=== PATIENT | male | born 1990 | race Caucasian/White ===

== ENCOUNTER 2025-01-13 10:03 | Emergency (ER) | payer SELFPAY ==
[2025-01-13 10:16] VITALS: BP 119/57; PULSE 74; RESP 16; TEMP 36.6; O2SAT 97; BMI 22.2
--- NOTE | 2025-01-13 10:22 | ED.EYEPROB ---
HPI - Eye Problem General Chief complaint: Eye Problems Stated complaint: eyes burning Time Seen by Provider: 01/13/25 11:13 Source: patient Mode of arrival: ambulatory Limitations: no limitations History of Present Illness ED Provider: Dr. Miller HPI Narrative: This is a 34-year-old male presented hospital today for evaluation of bilateral eye burning sensation. This occurred yesterday shortly after he was working on his car. Patient stated that he was placing a plastic piece. Denies any chemical exposure to his eyes. Patient's stated that it feels like a burning sensation in the medial canthus of his left eye. Related Data Previous Rx's ?Medication ?Instructions ?Recorded erythromycin 5 mg/gram (0.5 %) eye 0.5 inch ophthalmic (eye) BID #3.5 01/13/25 ointment grams Allergies Allergy/AdvReac Type Severity Reaction Status Date / Time No Known Allergies Allergy Verified 01/13/25 10:17 Review of Systems Review of Systems: Pertinent review of systems as mentioned in HPI. All other system otherwise negative. [facility] Past Medical History [facility] Narrative: Medical history as mentioned in [facility] Social History Social History Advance Directives: No Advance Directives Information Provided: Yes Physical Exam Exam: Exam: General: Pleasant, no distress, interacting appropriately Head: Normacephalic, atraumatic ENT: oral mucosa moist, neck supple, 20/20 left eye acuity, 20/30 right eye acuity, pupils PERRLA, EOMI, there was signs of conjunctivitis on exam, no sign of foreign object underneath the upper eyelids bilaterally, no signs of foreign object in the lower eyelids either. On Wood's lamp exam No signs of corneal ulcer or abrasion. Skin: Warm and dry Psychiatric: Appropriate mood and thoughts Vital Signs: Vital Signs: Last Vital Signs Temp 97.8 F 01/13/25 10:16 Pulse 74 01/13/25 10:16 Resp 16 01/13/25 10:16 BP 119/57 L 01/13/25 10:16 Pulse Ox 97 01/13/25 10:16 O2 Del Method Room Air 01/13/25 10:16 BMI result Body Mass Index 22.2 Course Course Course Narrative: This is an RME: Additional HPI, ROS, PE not included below will be deferred to primary provider. RME assessment and note performed by: Eulalia Sonido, PA-C This is a 34-year-old male who presents emergency department with concerns of bilateral eye burning and irritation since last night. Left worse than right. Conjunctiva is injected, pupils reactive. He does report he is working on a car last night, does report some intermittent blurriness. Plan: Visual acuity, plus or minus fluorescein staining Medications Administered Discontinued Medications Generic Name Dose Route Start Last Admin Trade Name Luciano PRN Reason Stop Dose Admin Fluorescein Sodium 1 strip 01/13/25 10:27 01/13/25 11:24 Fluorescein Sodium Strip EYE-BOTH 01/13/25 10:28 1 strip ONCE ONE Administration Tetracaine HCl 3 drop 01/13/25 10:27 01/13/25 11:24 Tetracaine Hcl/Pf 0.5% Oph Dawn 4 Ml Drops EYE-BOTH 01/13/25 10:28 3 drop ONCE ONE Administration Medical Decision Making Medical Decision Making [facility] Narrative: This is a 34-year-old male presented hospital today for evaluation of bilateral eye burning sensation and irritation. I did perform a slit-lamp exam. No signs of foreign object in the eyelids. No sign of corneal abrasion or corneal ulcer on exam. I think this is isolated conjunctivitis. Patient denies any chemical exposure. I did irrigated the eyes bilaterally with normal saline fluid. Tetracaine was used to numb the patient's eye for this exam. Patient will be discharged at this time. We will prescribe him some erythromycin ointment for conjunctivitis. Referral to eye Clinic will be provided the patient. Differential Diagnosis Differential Diagnoses: The differential diagnosis associated with the presentation includes Iritis, conjunctivitis, corneal abrasion, corneal ulcer Lab Data [facility] Lab Attestation statement: I reviewed the patient's lab results. Prescription Management I considered prescription management with: Antibiotic Discharge Plan Discharge Clinical Impression: Conjunctivitis Qualifiers: Conjunctivitis type: unspecified Laterality: bilateral Qualified Code(s): H10.9 - Unspecified conjunctivitis Patient Disposition: Home, Self-Care Instructions: Conjunctivitis (ED) Prescriptions: New erythromycin 5 mg/gram (0.5 %) ointment 0.5 inch ophthalmic (eye) BID Qty: 3.5 0RF Referrals: Ken Samuels [Physician, Ophthalmology] Print Language: Portuguese
[2025-01-13] MEDS: Tetracaine HCl/PF 0.5% Oph Sol 4 ML DROPS 3 DROP EYE-BOTH (11:24)
[2025-01-13] MEDS: Fluorescein Sodium STRIP 1 STRIP EYE-BOTH (11:24)
[2025-01-13 12:24] VITALS: BP 119/57; PULSE 74; RESP 16; TEMP 36.6; O2SAT 97
--- OUTSIDE RECORDS SUMMARY | 2025-01-13 15:14 | XMS_ITS | Clinical Summary ---
Author Organization [facility] Address [address] [place] [address] Phone Care Team Providers Care Air Launch Weapons Technician Name Role Phone Stef Christine Primary Care Provider [phone] Immunizations Immunization Administration Dates Next Due DTP 01/30/1998, 5,10/21/1993, 994,02/20/1993 Hep B, ped/adol 10/21/1993,02/20/1993,1992 Hib (PRP-T) 06/20/1994, 4,07/21/1993, 994 IPV 07/22/1995,10/21/1993,02/20/1993 MMR 01/28/1997,06/20/1994 Meningococcal Conj (Menactra) MCV4P 09/04/2007 OPV 01/30/1998 Tdap 11/11/2005 Varicella 09/04/2007,01/20/1998 Family History Relation Name Status Comments Brother Alive Brother: Alive and well Father Alive Father: Alive a nd well Mother Alive Mother: Alive a nd well Social History Tobacco Use Types Packs/Day Years Used Date Smoking Tobacco: Never Assessed Sex and Gender Information Value Date Recorded Sex Assigned at Not on file Legal Sex Male 4:28 PM EDT Gender Identity Not on file Sexual Orientation Not on file Plan of Treatment Health Maintenance Due Date Last Done Comments DTaP,Tdap,and Td Vaccines (7 - Td or Tdap) 11/12/2015 11/11/2005, 01/30/1998, 06/20/1994, Additional history exists HPV Vaccines (1 - 3-dose SCDM series) 12/28/2019 Influenza Vaccines (#1) 2024 COVID-19 Vaccine ( season) 2024 Hepatitis B Vaccines Completed 10/21/1993, 02/20/1993, 1992 HIB Vaccines Completed 06/20/1994, 02/1993, 07/21/1993, Additional history exists MMR Vaccines Completed 01/28/1997, 06/20/1994 IPV Vaccines Completed 01/30/1998, 02/1995, 10/21/1993, Additional history exists Meningococcal Vaccine Aged Out 09/04/2007 No nicole skye eligible based on patient's age to complete this topic Varicella Vaccines Completed 09/04/2007, 01/20/1998 Hepatitis A Vaccines Aged Out No long er eligible based on patient's age to complete this topic Men B Vaccine Aged Out No longer elig ible based on patient's age to complete this topic Pneumococcal Vaccine Aged Out No long er eligible based on patient's age to complete this topic Care Teams Air Launch Weapons Technician Relationship Specialty Start Date End Date Stef Christine [address] [place] [address] PCP - General 09/30/16
--- OUTSIDE RECORDS SUMMARY | 2025-01-13 15:14 | XMS_ITS | Encounter Summary ---
Author Organization [facility] Address [address] [place] [address] Phone Care Team Providers Care Barbecue Cook Name Role Phone Stef Christine Primary Care Provider [phone] Encounter Details Date Type Department Care Team (Late st Contact Info) Description 10/06/2016 Conversion Encounter [facility] [address] [place] [address] Social History Tobacco Use Types Packs/Day Years Used Date Smoking Tobacco: Never Assessed Sex and Gender Information Value Date Recorded Sex Assigned at Not on file Legal Sex Male 4:28 PM EDT Gender Identity Not on file Sexual Orientation Not on file documented as of this encounter Plan of Treatment Not on file documented as of this encounter Visit Diagnoses Not on filedocumented in this encounter Care Teams Barbecue Cook Relationship Specialty Start Date End Date Stef Christine [address] [place] [address] PCP - General 09/30/16 documented as of this encounter
== END 2025-01-13 12:25 | disposition home or self-care (01) ==
PROVIDERS: Emergency Provider Student in an Organized Health Care Education/Training Program
DX: H10.9 Unspecified conjunctivitis (principal)
CPT/HCPCS: 99283; 99284